=== PATIENT | male | born 1955 | race Caucasian/White ===

== ENCOUNTER → 2021-04-10 | Outpatient (CLI) | payer OTHER ==
[2021-04-10 15:10] LABS: ANISOCYTOSIS MODERATE; HYPOCHROMASIA MODERATE; LYMPHOCYTES % (MANUAL) 17 %; METAMYELOCYTES % 3 %; MONOCYTES % (MANUAL) 18 %; MYELOCYTES % 1 %; NEUTROPHILS % (MANUAL) 61 %
== END ==
LOC: LABNPT 08:00
PROVIDERS: ATTEND Internal Medicine
DX: D61.9 Aplastic anemia, unspecified (principal)
CPT/HCPCS: 85007